=== PATIENT | male | born 1990 | race Caucasian/White ===

== ENCOUNTER 2018-02-14 12:54 | Inpatient (IN) | payer OTHER ==
[2018-02-14 14:44] VITALS: BMI 30.5
--- NOTE | 2018-02-14 16:15 | HP ---
CIWA Score Nausea/Vomitin Muscle Tremors: 2 Anxiety: 2 Agitation: 2 Paroxysmal Sweats: 1-Minimal Palms Moist Orientation: 0-Oriented Tacttile Disturbances: 1-Very Mild Itch/Numbness Auditory Disturbances: 0-None Visual Disturbances: 1-Very Mild Sensitivity Headache: 2-Mild CIWA-Ar Total Score: 13 - Admission Criteria OASAS Guidelines: Admission for Medically Managed Detox: Requires at least one of the followin. CIWA greater than 12 2. Seizures within the past 24 hours 3. Delirium tremens within the past 24 hours 4. Hallucinations within the past 24 hours 5. Acute intervention needed for co occurring medical disorder 6. Acute intervention needed for co occurring psychiatric disorder 7. Severe withdrawal that cannot be handled at a lower level of care (continued vomiting, continued diarrhea, abnormal vital signs) requiring intravenous medication and/or fluids 8. Admission ROS [facility] - HPI Chief Complaint: i need help to stop drinking alcohol and marijuana Allergies/Adverse Reactions: Allergies Allergy/AdvReac Type Severity Reaction Status Date / Time No Known Allergies Allergy Verified 02/14/18 15:50 History of Present Illness: this 27 years old male with alcohol and marijuana dependence,seeking help for detox,withdrawal symptom,, last treatment detox 01/09/18 to 01/14/18 [facility] rehab 01/14/18 to 01/24/18 not complicated syncope alcohol related nicotine dependence seizure last 2015 Bipolar disorder ,no medication longest period of sobriety 2 years paln for rehab or intensive outpatient program Exam Limitations: No Limitations - Ebola screening Have you traveled outside of the country in the last 21 days: No Have you had contact with anyone from an Ebola affected area: No Have you been sick,other than usual withdrawal symptoms: No - Review of Systems Constitutional: Loss of Appetite, Malaise, Night Sweats, Changes in sleep, Weakness, Unintentional Wgt. Loss EENT: reports: Nose Congestion Respiratory: reports: No Symptoms reported Cardiac: reports: No Symptoms Reported GI: reports: Nausea, Poor Appetite, Abdominal cramping : reports: No Symptoms Reported Musculoskeletal: reports: Back Pain, Muscle Pain Integumentary: reports: Dryness Neuro: reports: Headache, Tremors Endocrine: reports: No Symptoms Reported Hematology: reports: No Symptoms Reported Psychiatric: reports: No Sypmtoms Reported, Judgement Intact, Mood/Affect Appropiate, Orientated x3, other (bipolar disorder no med) Patient History - Patient Medical History Hx Anemia: No Hx Asthma: No Hx Chronic Obstructive Pulmonary Disease (COPD): No Hx Cancer: No Hx Cardiac Disorders: No Hx Congestive Heart Failure: No Hx Hypertension: No Hx Hypercholesterolemia: No Hx Pacemaker: No HX Cerebrovascular Accident: No Hx Seizures: Yes (2016) Hx Dementia: No Hx Diabetes: No Hx Gastrointestinal Disorders: No Hx Liver Disease: No Hx Genitourinary Disorders: No Hx Sexually Transmitted Disorders: No Hx Renal Disease (ESRD): No Hx Thyroid Disease: No Hx Human Immunodeficiency Virus (HIV): No (last 2016 negative) Hx Hepatitis C: No Hx Depression: No Hx Suicide Attempt: No Hx Bipolar Disorder: Yes (no med) Hx Schizophrenia: No Other Medical History: no suicicdal,no homicidal - Patient Surgical History Past Surgical History: No - PPD History Previous Implant?: Yes Documented Results: Negative w/o proof Implanted On Prior [facility] Admission?: No PPD to be Administered?: Yes - Smoking Cessation Smoking history: Current every day smoker Have you smoked in the past 12 months: Yes Aproximately how many cigarettes per day: 20 Cigars Per Day: 0 Hx Chewing Tobacco Use: No Initiated information on smoking cessation: Yes 'Breaking Loose' booklet given: 02/14/18 - Substance & Tx. History Hx Alcohol Use: Yes Hx Substance Use: Yes Substance Use Type: Alcohol, Marijuana Hx Substance Use Treatment: Yes ([facility] 01/09/18 to 01/14/18, rehab 01/14/18 to 01/24/18 rehab ) - Substances Abused Alcohol-beer/vodka Route: Oral Frequency: Daily Amount used: 5 (24 oz,)/2 pts. Age of first use: 15 Date of Last Use: 02/14/18 Marijuana Route: Smoking Frequency: Daily Amount used: $20 Age of first use: 17 Date of Last Use: 02/13/18 Family Disease History - Family Disease History Family History: Denies Admission Physical Exam S - Vital Signs Vital Signs: Vital Signs - 24 hr 02/14/18 14:41 Temperature 97.7 F Pulse Rate 95 H Respiratory 20 Rate Blood Pressure 145/77 - Physical General Appearance: Yes: Moderate Distress, Tremorous, Irritable, Sweating, Anxious HEENTM: Yes: Normal ENT Inspection, GILMAR, Pharynx Normal Respiratory: Yes: Within Normal Limits, Lungs Clear, Normal Breath Sounds Neck: Yes: Within Normal Limits, Supple, Trachea in good position Breast: Yes: Within Normal Limits Cardiology: Yes: Within Normal Limits, Regular Rhythm, Regular Rate, S1, S2 Abdominal: Yes: Within Normal Limits, Normal Bowel Sounds, Non Tender, Soft Genitourinary: Yes: Within Normal Limits Back: Yes: Muscle Spasm Musculoskeletal: Yes: Back pain, Muscle Pain Extremities: Yes: Within Normal Limits, Normal Range of Motion, Tremors Neurological: Yes: clam digger II-XII NML intact, Fully Oriented, Alert, Motor Strength 5/5 Integumentary: Yes: Dry Lymphatic: Yes: Within Normal Limits - Diagnostic (1) Alcohol dependence with uncomplicated withdrawal Current Visit: Yes Status: Acute (2) Cannabis dependence Current Visit: Yes Status: Acute (3) Syncope Current Visit: Yes Status: Acute (4) Seizure Current Visit: Yes Status: Acute (5) Nicotine dependence Current Visit: Yes Status: Acute (6) Weight loss Current Visit: Yes Status: Acute (7) Bipolar disorder Current Visit: Yes Status: Acute Cleared for Admission [facility] - Detox or Rehab [facility] Level of Care: Medically Managed Detox Regimen/Protocol: Librium [facility] Breath Alcohol Content Breath Alcohol Content: 0 Urine Drug Screen - Results Drug Screen Negative: No Urine Drug Screen Results: THC-Marijuana
[2018-02-14] MEDS ORDERED: MAGNESIUM CITRATE 300 ML BOTTLE PO PRN (16:26)
[2018-02-14] MEDS ORDERED: chlordiazePOXIDE HCL 25 MG CAPSULE PO PRN (16:26)
[2018-02-14] MEDS ORDERED: ACETAMINOPHEN 325 MG TABLET (FP) PO PRN (16:26)
[2018-02-14] MEDS ORDERED: MENTHOL/PHENOL 1 EACH UD MM PRN (16:26)
[2018-02-14] MEDS ORDERED: LOPERAMIDE HCL 2 MG CAPSULE PO PRN (16:26)
[2018-02-14] MEDS ORDERED: MAG HYDROX/AL HYDROX/SIMETH 30 ML UNIT-DOSE CUP PO PRN (16:26)
[2018-02-14] MEDS ORDERED: MAGNESIUM HYDROX 2400MG/30ML ORAL SUSPENSION 30 ML CUP PO PRN (16:26)
[2018-02-14] MEDS ORDERED: P-EPHED 60MG/TRIPROLIDI 2.5MG TABLET PO PRN (16:26)
[2018-02-14] MEDS ORDERED: guaiFENesin/D-METHORPHAN HB 10 ML UNIT-DOSE CUPS PO PRN (16:26)
[2018-02-14] MEDS ORDERED: hydrOXYzine PAMOATE 50 MG CAPSULE (FP) PO PRN (16:26)
[2018-02-14] MEDS ORDERED: IBUPROFEN 400 MG TABLET (FP) PO PRN (16:26)
[2018-02-14] MEDS: NICOTINE 21 MG/24 HOURS TOPICAL PATCH TD SCH (17:43)
[2018-02-14] MEDS ORDERED: MELATONIN 5 MG TABLETS PO PRN (22:00)
[2018-02-14] MEDS: THIAMINE HCL 100 MG TABLET (FP) PO SCH (22:19)
[2018-02-14] MEDS: chlordiazePOXIDE HCL 25 MG CAPSULE PO SCH (22:19)
[2018-02-15] MEDS: chlordiazePOXIDE HCL 25 MG CAPSULE PO SCH ×4 (06:47→22:23)
[2018-02-15 10:28] LABS: ALBUMIN 3.7 g/dl (3.4-5.0); ALK PHOS 69 U/L (45-117); ANION GAP 5 MMOL/L (8-16); BILIRUBIN,TOTAL 0.6 mg/dL (0.2-1); BLOOD UREA NITROGEN 9 mg/dL (7-18); CALCIUM 8.3 mg/dL (8.5-10.1); CHLORIDE 105 mmol/L (98-107); CO2 30 mmol/L (21-32); CREATININE 0.8 mg/dL (0.55-1.3); GLUCOSE,RANDOM 78 mg/dL (74-106); POTASSIUM 3.6 mmol/L (3.5-5.1); SGOT/AST 18 U/L (15-37); SGPT/ALT 43 U/L (13-61); SODIUM 139 mmol/L (136-145); TOT PROT 6.9 g/dl (6.4-8.2)
[2018-02-15] MEDS: PRENATAL VITAMINS W/ FOLIC ACID TABLET (FP) PO SCH (10:36)
[2018-02-15] MEDS: NICOTINE 21 MG/24 HOURS TOPICAL PATCH TD SCH (10:36)
--- NOTE | 2018-02-15 11:58 | PN ---
S CIWA - CIWA Score Nausea/Vomitin-No Nausea/No Vomiting Muscle Tremors: None Anxiety: 0-No Anxiety, at Ease Agitation: 0-Normal Activity Paroxysmal Sweats: 3 Orientation: 1-Uncertain about Date Tacttile Disturbances: 3-Moderate Itch/Numb/Burn Auditory Disturbances: 0-None Visual Disturbances: 0-None Headache: 2-Mild CIWA-Ar Total Score: 9 BHS Progress Note (SOAP) Subjective: PATIENT STATES HE FEEL TIRED. C/O INTERRUPTED SLEEP, SWEATING AND TINGLING TO FEET. Objective: 02/15/18 11:56 Vital Signs Temperature 97.5 F L 02/15/18 09:20 Pulse Rate 70 02/15/18 09:20 Respiratory Rate 18 02/15/18 09:20 Blood Pressure 115/68 02/15/18 09:20 O2 Sat by Pulse Oximetry (%) Laboratory Tests 02/15/18 02/15/18 07:30 07:30 Sodium 139 Potassium 3.6 Chloride 105 Carbon Dioxide 30 Anion Gap 5 L BUN 9 Creatinine 0.8 Creat Clearance w eGFR > 60 Random Glucose 78 Calcium 8.3 L Total Bilirubin 0.6 AST 18 ALT 43 Alkaline Phosphatase 69 Total Protein 6.9 Albumin 3.7 HIV 1&2 Antibody Screen Negative HIV P24 Antigen Negative PE: SLEEPY, IRRITABLE, DISHEVELED SKIN WARM AND DRY EXT FULL ROM, NO EDEMA AMB AD SHAKEEL Assessment: 02/15/18 11:58 WITHDRAWAL SX Plan: CONTINUE DETOX PERSONAL HYGIENE ENCOURAGED CONTINUE TO MONITOR
--- NOTE | 2018-02-15 12:06 | EKG ---
Test Reason : Blood Pressure : / mmHG Vent. Rate : 093 BPM Atrial Rate : 093 BPM P-R Int : 136 ms QRS Dur : 108 ms QT Int : 348 ms P-R-T Axes : 017 -19 034 degrees QTc Int : 432 ms NORMAL SINUS RHYTHM INCOMPLETE RIGHT BUNDLE BRANCH BLOCK BORDERLINE ECG NO PREVIOUS ECGS AVAILABLE Confirmed by HERMINIO WILKINS, ANJANA ([id number]) on 02/15/2018 12:06:02 PM Referred By: Confirmed By:ANJANA DURHAM MD
[2018-02-15 14:18] LABS: HEMATOCRIT 46.2 % (35.4-49); HEMOGLOBIN 16.4 GM/dL (11.7-16.9); MCH 32.8 pg (25.7-33.7); MCHC 35.4 g/dl (32.0-35.9); MEAN CELL VOLUME 92.8 fl (80-96); MEAN PLT VOLUME 8.2 fl (7.5-11.1); PLATELET COUNT 200 K/MM3 (134-434); RBC 4.98 M/mm3 (4.00-5.60); WHITE BLOOD COUNT 7.1 K/mm3 (4.0-10.0)
[2018-02-15] MEDS: THIAMINE HCL 100 MG TABLET (FP) PO SCH (22:23)
[2018-02-16] MEDS: chlordiazePOXIDE HCL 25 MG CAPSULE PO SCH ×3 (06:58→17:30)
--- NOTE | 2018-02-16 10:15 | PN ---
S CIWA - CIWA Score Nausea/Vomitin-No Nausea/No Vomiting Muscle Tremors: 1-None Visible, but Maribel Anxiety: 1-Mildly Anxious Agitation: 0-Normal Activity Paroxysmal Sweats: 1-Minimal Palms Moist Orientation: 0-Oriented Tacttile Disturbances: 0-None Auditory Disturbances: 0-None Visual Disturbances: 0-None Headache: 0-None Present CIWA-Ar Total Score: 3 BHS Progress Note (SOAP) Subjective: pt states feeling fine overall, feeling a bit sleepy, OK with detox protocols O: Vital Signs - 24 hr 02/15/18 02/15/18 02/15/18 13:26 17:38 21:17 Temperature 97.0 F L 99 F 98.4 F Pulse Rate 88 87 88 Respiratory 18 20 18 Rate Blood Pressure 117/75 119/76 120/76 02/16/18 02/16/18 02/16/18 00:30 03:17 06:23 Temperature 98.3 F Pulse Rate 81 Respiratory 18 18 18 Rate Blood Pressure 113/62 02/16/18 09:16 Temperature 97.2 F L Pulse Rate 78 Respiratory 18 Rate Blood Pressure 97/61 Laboratory Tests 02/15/18 02/15/18 02/15/18 07:30 07:30 07:30 WBC 7.1 RBC 4.98 Hgb 16.4 Hct 46.2 MCV 92.8 MCH 32.8 MCHC 35.4 RDW 13.0 Plt Count 200 MPV 8.2 Sodium 139 Potassium 3.6 Chloride 105 Carbon Dioxide 30 Anion Gap 5 L BUN 9 Creatinine 0.8 Creat Clearance w eGFR > 60 Random Glucose 78 Calcium 8.3 L Total Bilirubin 0.6 AST 18 ALT 43 Alkaline Phosphatase 69 Total Protein 6.9 Albumin 3.7 RPR Titer HIV 1&2 Antibody Screen Negative HIV P24 Antigen Negative 02/15/18 07:30 WBC RBC Hgb Hct MCV MCH MCHC RDW Plt Count MPV Sodium Potassium Chloride Carbon Dioxide Anion Gap BUN Creatinine Creat Clearance w eGFR Random Glucose Calcium Total Bilirubin AST ALT Alkaline Phosphatase Total Protein Albumin RPR Titer Nonreactive HIV 1&2 Antibody Screen HIV P24 Antigen low calcium , nl albumine a/p: continue alcohol detox protocol calcium supplementation
[2018-02-16] MEDS: PRENATAL VITAMINS W/ FOLIC ACID TABLET (FP) PO SCH (10:27)
[2018-02-16] MEDS: NICOTINE 21 MG/24 HOURS TOPICAL PATCH TD SCH (10:27)
[2018-02-16] MEDS: THIAMINE HCL 100 MG TABLET (FP) PO SCH (22:17)
[2018-02-16] MEDS: chlordiazePOXIDE 5 MG CAPSULE PO SCH (22:17)
[2018-02-16] MEDS: CALCIUM CARBONATE 650 MG TABLET PO SCH (22:17)
[2018-02-17] MEDS: chlordiazePOXIDE 5 MG CAPSULE PO SCH ×3 (06:07→17:30)
[2018-02-17] MEDS: PRENATAL VITAMINS W/ FOLIC ACID TABLET (FP) PO SCH (10:26)
[2018-02-17] MEDS: CALCIUM CARBONATE 650 MG TABLET PO SCH ×2 (10:26→22:04)
[2018-02-17] MEDS: NICOTINE 21 MG/24 HOURS TOPICAL PATCH TD SCH (10:28)
--- NOTE | 2018-02-17 11:53 | PN ---
S Progress Note (SOAP) Subjective: alert,irritable,interrupted sleep, Objective: 02/17/18 11:52 Vital Signs Temperature 96.6 F L 02/17/18 09:21 Pulse Rate 68 02/17/18 09:21 Respiratory Rate 18 02/17/18 09:21 Blood Pressure 113/62 02/17/18 09:21 O2 Sat by Pulse Oximetry (%) Assessment: 02/17/18 11:52 withdrawal symptom Plan: continue detox,discharge in am
[2018-02-17] MEDS: chlordiazePOXIDE HCL 10 MG CAPSULE PO SCH (22:04)
[2018-02-17] MEDS: THIAMINE HCL 100 MG TABLET (FP) PO SCH (22:04)
[2018-02-18] MEDS: chlordiazePOXIDE HCL 10 MG CAPSULE PO SCH (06:00)
[2018-02-18 06:06] VITALS: BP 113/64; PULSE 75; TEMP 97.1
--- NOTE | 2018-02-18 12:43 | DS ---
[facility] Detox Discharge Summary Admission Date: 02/14/18 Discharge Date: 02/18/18 - History Present History: Alcohol Dependence, Cannabis Dependence Additional Comments: Patient completed detox successfully. Patient discharged safely; he is A, A, Ox3 , in nad, vss, ambulatory. Patient instructed to follow up with his PCP within 1 -2 weeks. Pertinent Past History: Alcohol dependence Cannabis dependence Seizure disorder Nicotine dependence Bipolar disorder - Physical Exam Results Vital Signs: Vital Signs Temperature 97.1 F L 02/18/18 06:05 Pulse Rate 75 02/18/18 06:05 Respiratory Rate 18 02/18/18 06:05 Blood Pressure 113/64 02/18/18 06:05 O2 Sat by Pulse Oximetry (%) Pertinent Admission Physical Exam Findings: Withdrawal symptoms Laboratory Tests 02/15/18 02/15/18 02/15/18 07:30 07:30 07:30 WBC 7.1 RBC 4.98 Hgb 16.4 Hct 46.2 MCV 92.8 MCH 32.8 MCHC 35.4 RDW 13.0 Plt Count 200 MPV 8.2 Sodium 139 Potassium 3.6 Chloride 105 Carbon Dioxide 30 Anion Gap 5 L BUN 9 Creatinine 0.8 Creat Clearance w eGFR > 60 Random Glucose 78 Calcium 8.3 L Total Bilirubin 0.6 AST 18 ALT 43 Alkaline Phosphatase 69 Total Protein 6.9 Albumin 3.7 RPR Titer HIV 1&2 Antibody Screen Negative HIV P24 Antigen Negative 02/15/18 07:30 WBC RBC Hgb Hct MCV MCH MCHC RDW Plt Count MPV Sodium Potassium Chloride Carbon Dioxide Anion Gap BUN Creatinine Creat Clearance w eGFR Random Glucose Calcium Total Bilirubin AST ALT Alkaline Phosphatase Total Protein Albumin RPR Titer Nonreactive HIV 1&2 Antibody Screen HIV P24 Antigen Labs reviewed - Treatment Hospital Course: Detox Protocol Followed, Detoxed Safely, Responded well, Discharged Condition Good - Medication Discharge Medications: Ambulatory Orders NK [No Known Home Medication] 02/14/18 - Diagnosis (1) Alcohol dependence with uncomplicated withdrawal Status: Acute (2) Bipolar disorder Status: Chronic (3) Cannabis dependence Status: Chronic (4) Nicotine dependence Status: Chronic (5) Seizure Status: Chronic (6) Obesity (BMI 30.0-34.9) Status: Chronic - AMA Did Patient Leave Against Medical Advice: No (F/U with PCP within 1-2 weeks)
== END 2018-02-18 09:08 | disposition home or self-care (01) | DRG 897 ==
LOC: YASAS 12:54 → Y3N 16:30
PROC: HZ2ZZZZ Detoxification Services for Substance Abuse Treatment (ICD-10-PCS; principal; 2018-02-14)
DX: F10.230 Alcohol dependence with withdrawal, uncomplicated (principal); G40.509 Epileptic seizures related to external causes, not intractable, without status epilepticus; F12.20 Cannabis dependence, uncomplicated; F17.210 Nicotine dependence, cigarettes, uncomplicated; F31.9 Bipolar disorder, unspecified; R55 Syncope and collapse; E83.51 Hypocalcemia; E66.01 Morbid (severe) obesity due to excess calories; Z68.30 Body mass index [BMI] 30.0-30.9, adult; Z59.0 Homelessness
CPT/HCPCS: 36415; 80053; 85027; 86593; 87389; 93005; 93010

== ENCOUNTER 2018-05-07 17:00 | Inpatient (IN) | payer OTHER ==
[2018-05-07 23:05] VITALS: BMI 29.8
--- NOTE | 2018-05-08 00:43 | HP ---
CIWA Score Nausea/Vomitin Muscle Tremors: 4-Moderate,w/Arms Extend Anxiety: 3 Agitation: 0-Normal Activity Paroxysmal Sweats: 2 Orientation: 1-Uncertain about Date Tacttile Disturbances: 0-None Auditory Disturbances: 0-None Visual Disturbances: 0-None Headache: 4-Moderately Severe CIWA-Ar Total Score: 16 - Admission Criteria OASAS Guidelines: Admission for Medically Managed Detox: Requires at least one of the followin. CIWA greater than 12 2. Seizures within the past 24 hours 3. Delirium tremens within the past 24 hours 4. Hallucinations within the past 24 hours 5. Acute intervention needed for co occurring medical disorder 6. Acute intervention needed for co occurring psychiatric disorder 7. Severe withdrawal that cannot be handled at a lower level of care (continued vomiting, continued diarrhea, abnormal vital signs) requiring intravenous medication and/or fluids 8. Admission ROS S - [facility] Chief Complaint: Alcohol withdrawal symptoms Allergies/Adverse Reactions: Allergies Allergy/AdvReac Type Severity Reaction Status Date / Time No Known Allergies Allergy Verified 05/07/18 23:22 History of Present Illness: 27 years old male with a long history of alcohol dependence is seeking admission to detox. Patient has been in previous detox and reports insignificant period of sobriety. He has history of seizures and depression. Denies suicidal ideation at this time Exam Limitations: No Limitations - Ebola screening Have you traveled outside of the country in the last 21 days: No (N) Have you had contact with anyone from an Ebola affected area: No Have you been sick,other than usual withdrawal symptoms: No Do you have a fever: No - Review of Systems Constitutional: No Symptoms Reported, Chills, Loss of Appetite, Malaise, Night Sweats, Changes in sleep EENT: reports: Sinus Pressure Respiratory: reports: No Symptoms reported Cardiac: reports: No Symptoms Reported GI: reports: Diarrhea (x 3), Nausea, Poor Appetite, Poor Fluid Intake, Abdominal cramping : reports: No Symptoms Reported Musculoskeletal: reports: Back Pain Integumentary: reports: Dryness, Flushing Neuro: reports: Tremors Endocrine: reports: No Symptoms Reported Hematology: reports: No Symptoms Reported Psychiatric: reports: Orientated x3, Anxious, Depressed Other Systems: Reviewed and Negative Patient History - Patient Medical History Hx Anemia: No Hx Asthma: No Hx Chronic Obstructive Pulmonary Disease (COPD): No Hx Cancer: No Hx Cardiac Disorders: No Hx Congestive Heart Failure: No Hx Hypertension: No Hx Hypercholesterolemia: No Hx Pacemaker: No HX Cerebrovascular Accident: No Hx Seizures: Yes (Not on medication) Hx Dementia: No Hx Diabetes: No Hx Gastrointestinal Disorders: No Hx Liver Disease: No Hx Genitourinary Disorders: No Hx Sexually Transmitted Disorders: No Hx Renal Disease (ESRD): No Hx Thyroid Disease: No Hx Human Immunodeficiency Virus (HIV): No (last 2016 negative) Hx Hepatitis C: No Hx Depression: Yes (Not on medication) Hx Suicide Attempt: No Hx Bipolar Disorder: Yes (Not on medication) Hx Schizophrenia: No - Patient Surgical History Past Surgical History: No Hx Neurologic Surgery: No Hx Cataract Extraction: No Hx Cardiac Surgery: No Hx Lung Surgery: No Hx Breast Surgery: No Hx Breast Biopsy: No Hx Abdominal Surgery: No Hx Appendectomy: No Hx Cholecystectomy: No Hx Genitourinary Surgery: No Hx Section: No Hx Orthopedic Surgery: No Anesthesia Reaction: No - PPD History Previous Implant?: Yes Documented Results: Negative w/proof Implanted On Prior [facility] Admission?: Yes Date: 02/16/18 PPD to be Administered?: No - Reproductive History Patient is a Female of Child Bearing Age (11 -55 yrs old): No (Male) - Smoking Cessation Smoking history: Current every day smoker Have you smoked in the past 12 months: Yes Aproximately how many cigarettes per day: 20 Cigars Per Day: 0 Hx Chewing Tobacco Use: No Initiated information on smoking cessation: Yes 'Breaking Loose' booklet given: 05/08/18 - Substance & Tx. History Hx Alcohol Use: Yes Hx Substance Use: Yes Substance Use Type: Alcohol, Marijuana Hx Substance Use Treatment: Yes ([facility]) - Substances Abused Alcohol Route: Oral Frequency: Daily Amount used: LIQUOR (VODKA)- 3 PINTS Age of first use: 15 Date of Last Use: 05/07/18 Marijuana/Hashish Route: Smoking Frequency: Daily Amount used: 3 JOINTS Age of first use: 17 Date of Last Use: 05/07/18 Family Disease History - Family Disease History Family History: Denies Admission Physical Exam BHS - Vital Signs Vital Signs: Vital Signs - 24 hr 05/07/18 23:03 Temperature 98.7 F Pulse Rate 105 H Respiratory 18 Rate Blood Pressure 142/78 - Physical General Appearance: Yes: Moderate Distress, Tremorous, Sweating, Anxious HEENTM: Yes: EOMI, Normal ENT Inspection, Normal Voice, GILMAR Respiratory: Yes: Lungs Clear, Normal Breath Sounds, No Respiratory Distress Neck: Yes: Supple Breast: Yes: Breast Exam Deferred Cardiology: Yes: Tachycardia Abdominal: Yes: Normal Bowel Sounds Genitourinary: Yes: Within Normal Limits Back: Yes: Normal Inspection Extremities: Yes: Tremors Neurological: Yes: Alert, Normal Mood/Affect Integumentary: Yes: Warm Lymphatic: Yes: Within Normal Limits - Diagnostic (1) Depression Current Visit: Yes Status: Chronic Qualifiers: Depression Type: unspecified Qualified Code(s): F32.9 - Major depressive disorder, single episode, unspecified (2) Alcohol dependence with uncomplicated withdrawal Current Visit: Yes Status: Chronic (3) Cannabis dependence Current Visit: Yes Status: Chronic (4) Nicotine dependence Current Visit: Yes Status: Chronic Qualifiers: Nicotine product type: cigarettes Substance use status: uncomplicated Qualified Code(s): F17.210 - Nicotine dependence, cigarettes, uncomplicated (5) Obesity (BMI 30.0-34.9) Current Visit: Yes Status: Chronic (6) Seizure Current Visit: Yes Status: Chronic Cleared for Admission [facility] - Detox or Rehab [facility] Level of Care: Medically Managed Detox Regimen/Protocol: Librium [facility] Breath Alcohol Content Breath Alcohol Content: 0 Urine Drug Screen - Results Drug Screen Negative: No Urine Drug Screen Results: THC-Marijuana Inpatient Rehab Admission - Rehab Decision to Admit Inpatient rehab admission?: No
[2018-05-08] MEDS ORDERED: MAGNESIUM HYDROX 2400MG/30ML ORAL SUSPENSION 30 ML CUP PO PRN (00:48)
[2018-05-08] MEDS ORDERED: METHOCARBAMOL 500 MG TABLET PO PRN (00:48)
[2018-05-08] MEDS ORDERED: MAG HYDROX/AL HYDROX/SIMETH 30 ML UNIT-DOSE CUP PO PRN (00:48)
[2018-05-08] MEDS ORDERED: IBUPROFEN 400 MG TABLET (FP) PO PRN (00:48)
[2018-05-08] MEDS ORDERED: ACETAMINOPHEN 325 MG TABLET (FP) PO PRN ×2 (00:48)
[2018-05-08] MEDS ORDERED: MENTHOL/PHENOL 1 EACH UD MM PRN (00:48)
[2018-05-08] MEDS ORDERED: hydrOXYzine PAMOATE 25 MG CAPSULE (FP) PO PRN (00:48)
[2018-05-08] MEDS ORDERED: chlordiazePOXIDE HCL 25 MG CAPSULE PO PRN (00:48)
[2018-05-08] MEDS ORDERED: MAGNESIUM CITRATE 300 ML BOTTLE PO PRN (00:48)
[2018-05-08] MEDS ORDERED: MELATONIN 5 MG TABLETS PO PRN (00:48)
[2018-05-08] MEDS ORDERED: BISMUTH SUBSALICYLATE 524 MG/30 ML UD PO PRN (00:48)
[2018-05-08] MEDS ORDERED: NICOTINE POLACRILEX 2 MG GUM BUC PRN (00:48)
[2018-05-08] MEDS: chlordiazePOXIDE HCL 25 MG CAPSULE PO SCH ×4 (06:18→22:40)
[2018-05-08] MEDS: PRENATAL VITAMINS W/ FOLIC ACID TABLET (FP) PO SCH (10:11)
[2018-05-08] MEDS: NICOTINE 14 MG/24 HOURS TOPICAL PATCH TD SCH (10:12)
--- NOTE | 2018-05-08 13:37 | EKG ---
Test Reason : Blood Pressure : / mmHG Vent. Rate : 086 BPM Atrial Rate : 086 BPM P-R Int : 144 ms QRS Dur : 112 ms QT Int : 354 ms P-R-T Axes : 064 002 044 degrees QTc Int : 423 ms NORMAL SINUS RHYTHM INCOMPLETE RIGHT BUNDLE BRANCH BLOCK BORDERLINE ECG WHEN COMPARED WITH ECG OF 14-FEB-2018 17:23, NO SIGNIFICANT CHANGE WAS FOUND Confirmed by MD DWAIN, ZOHRA ([id number]) on 05/08/2018 1:37:00 PM Referred By: Confirmed By:ZOHRA PRAKASH MD
--- NOTE | 2018-05-08 14:41 | CONSULT ---
[facility] Psychiatric Consult - Data Date of interview: 05/08/18 Admission source: [facility] Identifying data: Patient is approached for psychiatric interview. Uncooperative. Declines evaluation.
--- NOTE | 2018-05-08 15:41 | PN ---
[facility] CIWA - CIWA Score Nausea/Vomitin-Mild Nausea/No Vomiting Muscle Tremors: 3 Anxiety: 2 Agitation: 2 Paroxysmal Sweats: 1-Minimal Palms Moist Orientation: 1-Uncertain about Date Tacttile Disturbances: 0-None Auditory Disturbances: 0-None Visual Disturbances: 0-None Headache: 1-Very Mild CIWA-Ar Total Score: 11 S Progress Note (SOAP) Subjective: tremor sweating anxiety trouble concentration Objective: 05/08/18 15:43 Vital Signs Temperature 97.3 F L 05/08/18 13:28 Pulse Rate 94 H 05/08/18 13:28 Respiratory Rate 18 05/08/18 13:28 Blood Pressure 126/78 05/08/18 13:28 O2 Sat by Pulse Oximetry (%) lab noted Assessment: 05/08/18 15:44 withdrawal sx Plan: continue detox
[2018-05-08] MEDS ORDERED: THIAMINE HCL 100 MG TABLET (FP) PO SCH (22:00)
[2018-05-09] MEDS: chlordiazePOXIDE HCL 25 MG CAPSULE PO SCH ×3 (06:06→18:18)
[2018-05-09 11:02] LABS: HEMATOCRIT 43.2 % (35.4-49); HEMOGLOBIN 15.2 GM/dL (11.7-16.9); MCH 32.5 pg (25.7-33.7); MCHC 35.3 g/dl (32.0-35.9); MEAN CELL VOLUME 92.2 fl (80-96); MEAN PLT VOLUME 8.2 fl (7.5-11.1); PLATELET COUNT 149 K/MM3 (134-434); RBC 4.68 M/mm3 (4.00-5.60); RDW 13.2 % (11.9-15.9); WHITE BLOOD COUNT 6.3 K/mm3 (4.0-10.0)
[2018-05-09 11:12] LABS: ALBUMIN 3.6 g/dl (3.4-5.0); ALK PHOS 69 U/L (45-117); ANION GAP 7 MMOL/L (8-16); BILIRUBIN,TOTAL 0.5 mg/dL (0.2-1); BLOOD UREA NITROGEN 5 mg/dL (7-18); CHLORIDE 103 mmol/L (98-107); CO2 28 mmol/L (21-32); CREATININE 0.8 mg/dL (0.55-1.3); GLUCOSE,RANDOM 82 mg/dL (74-106); POTASSIUM 3.8 mmol/L (3.5-5.1); SGOT/AST 19 U/L (15-37); SGPT/ALT 50 U/L (13-61); SODIUM 138 mmol/L (136-145); TOT PROT 6.9 g/dl (6.4-8.2)
[2018-05-09] MEDS: PRENATAL VITAMINS W/ FOLIC ACID TABLET (FP) PO SCH (11:29)
[2018-05-09] MEDS: NICOTINE 14 MG/24 HOURS TOPICAL PATCH TD SCH (11:29)
--- NOTE | 2018-05-09 15:14 | PN ---
S CIWA - CIWA Score Nausea/Vomitin-No Nausea/No Vomiting Muscle Tremors: 2 Anxiety: 1-Mildly Anxious Agitation: 1-Slight > Activity Paroxysmal Sweats: 1-Minimal Palms Moist Orientation: 1-Uncertain about Date Tacttile Disturbances: 0-None Auditory Disturbances: 0-None Visual Disturbances: 0-None Headache: 1-Very Mild CIWA-Ar Total Score: 7 S Progress Note (SOAP) Subjective: feeling better less tremor better appetite Objective: 05/09/18 15:14 Vital Signs Temperature 99.6 F 05/09/18 13:03 Pulse Rate 106 H 05/09/18 13:03 Respiratory Rate 20 05/09/18 13:03 Blood Pressure 85/60 L 05/09/18 13:03 O2 Sat by Pulse Oximetry (%) Laboratory Last Values WBC 6.3 K/mm3 (4.0-10.0) 05/09/18 07:00 RBC 4.68 M/mm3 (4.00-5.60) 05/09/18 07:00 Hgb 15.2 GM/dL (11.7-16.9) 05/09/18 07:00 Hct 43.2 % (35.4-49) 05/09/18 07:00 MCV 92.2 fl (80-96) 05/09/18 07:00 MCH 32.5 pg (25.7-33.7) 05/09/18 07:00 MCHC 35.3 g/dl (32.0-35.9) 05/09/18 07:00 RDW 13.2 % (11.9-15.9) 05/09/18 07:00 Plt Count 149 K/MM3 (134-434) D 05/09/18 07:00 MPV 8.2 fl (7.5-11.1) 05/09/18 07:00 Sodium 138 mmol/L (136-145) 05/09/18 07:00 Potassium 3.8 mmol/L (3.5-5.1) 05/09/18 07:00 Chloride 103 mmol/L (98-107) 05/09/18 07:00 Carbon Dioxide 28 mmol/L (21-32) 05/09/18 07:00 Anion Gap 7 MMOL/L (8-16) L 05/09/18 07:00 BUN 5 mg/dL (7-18) L 05/09/18 07:00 Creatinine 0.8 mg/dL (0.55-1.3) 05/09/18 07:00 Creat Clearance w eGFR > 60 (>60) 05/09/18 07:00 Random Glucose 82 mg/dL (74-106) 05/09/18 07:00 Calcium 8.0 mg/dL (8.5-10.1) L 05/09/18 07:00 Total Bilirubin 0.5 mg/dL (0.2-1) 05/09/18 07:00 AST 19 U/L (15-37) 05/09/18 07:00 ALT 50 U/L (13-61) 05/09/18 07:00 Alkaline Phosphatase 69 U/L (45-117) 05/09/18 07:00 Total Protein 6.9 g/dl (6.4-8.2) 05/09/18 07:00 Albumin 3.6 g/dl (3.4-5.0) 05/09/18 07:00 RPR Titer Nonreactive (NONREACTIVE) 05/09/18 07:00 lab noted Assessment: 05/09/18 15:14 mild withdrawal sx Plan: continue detox
--- NOTE | 2018-05-09 20:59 | PN ---
[facility] Progress Note Note: Vital Signs Temperature 98 F 05/09/18 18:09 Pulse Rate 90 05/09/18 18:09 Respiratory Rate 16 05/09/18 18:09 Blood Pressure 117/70 05/09/18 18:09 O2 Sat by Pulse Oximetry (%) Laboratory Last Values WBC 6.3 K/mm3 (4.0-10.0) 05/09/18 07:00 RBC 4.68 M/mm3 (4.00-5.60) 05/09/18 07:00 Hgb 15.2 GM/dL (11.7-16.9) 05/09/18 07:00 Hct 43.2 % (35.4-49) 05/09/18 07:00 MCV 92.2 fl (80-96) 05/09/18 07:00 MCH 32.5 pg (25.7-33.7) 05/09/18 07:00 MCHC 35.3 g/dl (32.0-35.9) 05/09/18 07:00 RDW 13.2 % (11.9-15.9) 05/09/18 07:00 Plt Count 149 K/MM3 (134-434) D 05/09/18 07:00 MPV 8.2 fl (7.5-11.1) 05/09/18 07:00 Sodium 138 mmol/L (136-145) 05/09/18 07:00 Potassium 3.8 mmol/L (3.5-5.1) 05/09/18 07:00 Chloride 103 mmol/L (98-107) 05/09/18 07:00 Carbon Dioxide 28 mmol/L (21-32) 05/09/18 07:00 Anion Gap 7 MMOL/L (8-16) L 05/09/18 07:00 BUN 5 mg/dL (7-18) L 05/09/18 07:00 Creatinine 0.8 mg/dL (0.55-1.3) 05/09/18 07:00 Creat Clearance w eGFR > 60 (>60) 05/09/18 07:00 Random Glucose 82 mg/dL (74-106) 05/09/18 07:00 Calcium 8.0 mg/dL (8.5-10.1) L 05/09/18 07:00 Total Bilirubin 0.5 mg/dL (0.2-1) 05/09/18 07:00 AST 19 U/L (15-37) 05/09/18 07:00 ALT 50 U/L (13-61) 05/09/18 07:00 Alkaline Phosphatase 69 U/L (45-117) 05/09/18 07:00 Total Protein 6.9 g/dl (6.4-8.2) 05/09/18 07:00 Albumin 3.6 g/dl (3.4-5.0) 05/09/18 07:00 RPR Titer Nonreactive (NONREACTIVE) 05/09/18 07:00 Patient reports he needs to leave AMA d/t his insurance covering only 80% of his stay. Patient encourage to speak with his counselor, but decline. Patient Aox3, no acute distress, no SI/HI. Patient advised on the risk of interrupting treatment which include relapse and even . Patient verbalizes understanding. Patient was provided a listing of outpatient services. If worsening symptoms are present patient to seek medical attention or go to his local ED.
--- NOTE | 2018-05-09 21:01 | DS ---
[facility] Detox Discharge Summary Admission Date: 05/08/18 Discharge Date: 05/09/18 - History Present History: Alcohol Dependence, Cannabis Dependence Additional Comments: Patient leaving AMA. Advised on the risk of interrupting treatment. Patient to follow up with outpaitnt services. If worsening symptoms are present patient to seek medical attention or go to local ED. - Physical Exam Results Vital Signs: Vital Signs Temperature 98 F 05/09/18 18:09 Pulse Rate 90 05/09/18 18:09 Respiratory Rate 16 05/09/18 18:09 Blood Pressure 117/70 05/09/18 18:09 O2 Sat by Pulse Oximetry (%) - Medication Discharge Medications: Ambulatory Orders NK [No Known Home Medication] 02/14/18 - Diagnosis (1) Alcohol dependence with uncomplicated withdrawal Current Visit: Yes Status: Chronic (2) Cannabis dependence Current Visit: Yes Status: Chronic (3) Nicotine dependence Current Visit: Yes Status: Chronic Qualifiers: Nicotine product type: cigarettes Substance use status: uncomplicated Qualified Code(s): F17.210 - Nicotine dependence, cigarettes, uncomplicated (4) Obesity (BMI 30.0-34.9) Current Visit: Yes Status: Chronic (5) Seizure Current Visit: Yes Status: Chronic (6) Weight loss Current Visit: No Status: Acute - AMA Did Patient Leave Against Medical Advice: Yes
[2018-05-09 22:00] VITALS: BP 103/62; PULSE 101; TEMP 98.5
[2018-05-10] MEDS ORDERED: chlordiazePOXIDE HCL 10 MG CAPSULE PO SCH (05:00)
[2018-05-10] MEDS ORDERED: chlordiazePOXIDE HCL 10 MG CAPSULE PO PRN (05:00)
[2018-05-11] MEDS ORDERED: chlordiazePOXIDE HCL 10 MG CAPSULE PO SCH (05:00)
== END 2018-05-09 21:18 | disposition left against medical advice (07) | DRG 894 ==
LOC: YASAS 17:00 → Y3N 05-08 01:00
PROVIDERS: ADMIT Surgery; ATTEND Surgery
PROC: HZ2ZZZZ Detoxification Services for Substance Abuse Treatment (ICD-10-PCS; principal; 2018-05-08)
DX: F10.230 Alcohol dependence with withdrawal, uncomplicated (principal); F12.20 Cannabis dependence, uncomplicated; F17.210 Nicotine dependence, cigarettes, uncomplicated; F32.9 Major depressive disorder, single episode, unspecified; G40.909 Epilepsy, unspecified, not intractable, without status epilepticus; R00.0 Tachycardia, unspecified; E66.9 Obesity, unspecified; Z68.29 Body mass index [BMI] 29.0-29.9, adult; Z59.0 Homelessness
CPT/HCPCS: 36415; 80053; 85027; 86593; 93005; 93010